=== PATIENT | female | born 1990 | race Caucasian/White ===

== ENCOUNTER 2016-12-15 19:40 | Emergency (ER) | payer BC ==
[2016-12-15 19:49] VITALS: BP 128/82; TEMP 98.4; BMI 32.1
[2016-12-15 20:29] LABS: URINE APPEARANCE CLEAR; URINE BILIRUBIN NEGATIVE (NEGATIVE); URINE BLOOD 3+ (NEGATIVE); URINE COLOR LTYELLOW; URINE GLUCOSE (UA) NEGATIVE (NEGATIVE); URINE KETONE NEGATIVE (NEGATIVE); URINE NITRITE NEGATIVE (NEGATIVE); URINE PROTEIN NEGATIVE (NEGATIVE); URINE UROBILINOGEN NEGATIVE mg/dL (0.2-1.0)
[2016-12-15 20:34] LABS: BASOPHIL 0.6 % (0-2.0); EOSINOPHIL 0.7 % (0-4.5); MCH 29.9 pg (25.7-33.7); MCHC 34.7 g/dl (32.0-36.0); MEAN CELL VOLUME 86.1 fl (80-96); MEAN PLT VOLUME 8.5 fl (7.5-11.1); NEUTROPHILS 73.4 % (42.8-82.8); PLATELET COUNT 295 K/MM3 (134-434); RDW 12.6 % (11.6-15.6); WHITE BLOOD COUNT 12.9 K/mm3 (4.0-10.0)
[2016-12-15 20:56] LABS: URINE BACTERIA RARE /hpf (NONE SEEN); URINE MUCUS RARE; URINE RBC 315 /hpf (0-3); URINE WBC 8 /hpf (3-5)
[2016-12-15] MEDS ORDERED: KETOROLAC TROMETHAMINE 30 MG/1 ML VIAL IVPUSH ONE (21:04)
--- NOTE | 2016-12-15 21:06 | PDOC ---
History of Present Illness <Radha Kincaid - Last Filed: 12/15/16 21:05> - General History Source: Patient Exam Limitations: No Limitations - History of Present Illness Timing/Duration: 4-6 hours Severity: severe Associated Symptoms: reports: nausea/vomiting <Maryjo Casillas - Last Filed: 12/15/16 21:22> - General Chief Complaint: Pain, Acute Stated Complaint: RT FLANK PAIN Time Seen by Provider: 12/15/16 20:09 Past History - Past Medical History COPD: No - Suicide/Smoking/Psychosocial Hx Smoking History: Never smoked Hx Alcohol Use: No Drug/Substance Use Hx: No <Radha Kincaid - Last Filed: 12/15/16 21:05> <Maryjo Casillas - Last Filed: 12/15/16 21:22> - Past Medical History Allergies/Adverse Reactions: Allergies Allergy/AdvReac Type Severity Reaction Status Date / Time No Known Allergies Allergy Verified 12/15/16 19:48 Home Medications: Ambulatory Orders NK [No Known Home Medication] 12/15/16 Review of Systems - Review of Systems Able to Perform ROS?: Yes Is the patient limited Irish proficient: No Constitutional: No: Symptoms Reported, See HPI, Chills, Diaphoresis, Fever, Loss of Appetite, Malaise, Night Sweats, Weakness, Weight Stable, Unintentional Wgt. Loss, Unexplained wgt Loss, Other HEENTM: No: Symptoms Reported, See HPI, Eye Pain, Blurred Vision, Tearing, Recent change in vision, Double Vision, Cataracts, Ear Pain, Ocular Prothesis, Ear Discharge, Nose Pain, Nose Congestion, Tinnitus, Nose Bleeding, Hearing Loss , Throat Pain, Throat Swelling, Mouth Pain, Dental Problems, Difficulty Swallowing, Mouth Swelling, Other Respiratory: No: Symptoms reported, See HPI, Cough, Orthopnea, Shortness of Breath, SOB with Exertion, SOB at Rest, Stridor, Wheezing, Productive cough, Hemoptysis, Other Cardiac (ROS): No: Symptoms Reported, See HPI, Chest Pain, Edema, Irregular Heart Rate, Lightheadedness, Palpitations, Syncope, Chest Tightness, Other ABD/GI: Yes: Nausea : Yes: Flank Pain Musculoskeletal: Yes: Back Pain Neurological: No: Symptoms reported, See HPI, Headache, Numbness, Paresthesia, Pre-Existing Deficit, Seizure, Tingling, Tremors, Weakness, Unsteady Gait, Ataxia, Dizziness, Other Psychiatric: No: Anxiety, Depression, Frequent Crying, Stressors, Sleep Pattern Change, Emotional Problems, Mood Swings, Change in Appetite, Other Endocrine: No: Increased Thirst, Increased Urine Hematologic/Lymphatic: No: Symptoms Reported, See HPI, Anemia, Blood Clots, Easy Bleeding, Easy Bruising, Bleeding Diathesis, Lymph Node Abnormalities, Swollen Glands, Other <Maryjo Casillas - Last Filed: 12/15/16 21:22> *Physical Exam - Vital Signs Last Vital Signs Temp Pulse Resp BP Pulse Ox 98.4 F 83 18 128/82 98 12/15/16 19:43 12/15/16 19:43 12/15/16 19:43 12/15/16 19:43 12/15/16 19:43 <Radha Kincaid - Last Filed: 12/15/16 21:05> - Vital Signs Last Vital Signs Temp Pulse Resp BP Pulse Ox 98.4 F 83 18 128/82 98 12/15/16 19:43 12/15/16 19:43 12/15/16 19:43 12/15/16 19:43 12/15/16 19:43 - Physical Exam General Appearance: Yes: Nourished, Mild Distress HEENT: positive: Normal Voice Neck: positive: Supple Respiratory/Chest: positive: Lungs Clear Cardiovascular: positive: Regular Rhythm, Regular Rate Gastrointestinal/Abdominal: positive: Tender, Soft Rectal Exam: positive: deferred Musculoskeletal: positive: CVA Tenderness (R) Extremity: negative: Normal Capillary Refill, Normal Inspection, Normal Range of Motion, Tender, Pelvis Stable, Coldness, Cyanosis, Delayed Capillary Refill, Pedal Edema, Swelling, Calf Tenderness, Erythema, Inflammation, Other Integumentary: positive: Normal Color, Warm Neurologic: positive: Fully Oriented, Normal Response, Motor Strength 5/5 <Maryjo Casillas - Last Filed: 12/15/16 21:22> ED Treatment Course - LABORATORY CBC & Chemistry Diagram: 12/15/16 20:13 12/15/16 20:13 - ADDITIONAL ORDERS Additional order review: Laboratory Results 12/15/16 12/15/16 20:11 20:11 Urine Color Ltyellow Urine Appearance Clear Urine pH 7.0 Ur Specific [place] 1.011 Urine Protein Negative Urine Glucose (UA) Negative Urine Ketones Negative Urine Blood 3+ H Urine Nitrite Negative Urine Bilirubin Negative Urine Urobilinogen Negative Urine HCG, Qual Negative 12/15/16 20:13 RBC 4.67 MCV 86.1 MCHC 34.7 RDW 12.6 MPV 8.5 Neutrophils % 73.4 Lymphocytes % 20.1 Monocytes % 5.2 Eosinophils % 0.7 Basophils % 0.6 - RADIOLOGY Radiology Studies Ordered: Category Date Time Status TRANSVAGINAL ULTRASOUND US [US] Stat Ultrasound 12/15/16 19:47 Completed <Radha Kincaid - Last Filed: 12/15/16 21:05> - LABORATORY CBC & Chemistry Diagram: 12/15/16 20:13 12/15/16 20:13 - ADDITIONAL ORDERS Additional order review: Laboratory Results 12/15/16 12/15/16 20:11 20:11 Urine Color Ltyellow Urine Appearance Clear Urine pH 7.0 Ur Specific [place] 1.011 Urine Protein Negative Urine Glucose (UA) Negative Urine Ketones Negative Urine Blood 3+ H Urine Nitrite Negative Urine Bilirubin Negative Urine Urobilinogen Negative Urine RBC 315 Urine WBC 8 Ur Epithelial Cells Rare Urine Bacteria Rare Urine Mucus Rare Urine HCG, Qual Negative 12/15/16 20:13 RBC 4.67 MCV 86.1 MCHC 34.7 RDW 12.6 MPV 8.5 Neutrophils % 73.4 Lymphocytes % 20.1 Monocytes % 5.2 Eosinophils % 0.7 Basophils % 0.6 - Medications Given in the ED: ED Medications Discontinued Medications Generic Name Dose Route Start Last Admin Trade Name Freq PRN Reason Stop Dose Admin Ketorolac Tromethamine 30 mg 12/15/16 21:04 12/15/16 21:10 Toradol Injection - IVPUSH 12/15/16 21:05 30 mg ONCE ONE Administration <Maryjo Casillas - Last Filed: 12/15/16 21:22> *DC/Admit/Observation/Transfer - Discharge Dispostion Admit: No <Radha Kincaid - Last Filed: 12/15/16 21:05> <Maryjo Casillas - Last Filed: 12/15/16 21:22> Diagnosis at time of Disposition: Nephrolithiasis - Discharge Dispostion Disposition: HOME Condition at time of disposition: Good - Referrals Referrals: STAFF,NOT ON [Primary Care Provider] - - Patient Instructions Printed Discharge Instructions: Kidney Stones -- Adult Additional Instructions: A prescription for pain medication has been called to your pharmacy. Please return to the Emergency Department should you have any worsening or concerning symptoms.
[2016-12-15] MEDS ORDERED: KETOROLAC TROMETHAMINE 30 MG/1 ML VIAL ONE (21:07)
[2016-12-15 21:29] VITALS: PULSE 82
[2016-12-15 22:00] LABS: ALBUMIN 4.3 g/dl (3.4-5.0); ALK PHOS 65 U/L (45-117); ANION GAP 6 (8-16); BILIRUBIN,TOTAL 0.5 mg/dL (0.2-1.0); CALCIUM 8.6 mg/dL (8.5-10.1); CO2 28 mmol/L (21-32); CREATININE 0.8 mg/dL (0.55-1.02); GLUCOSE,RANDOM 88 mg/dL (74-106); SGOT/AST 13 U/L (15-37); SGPT/ALT 19 U/L (12-78); TOT PROT 7.5 g/dl (6.4-8.2)
[2016-12-15 23:33] LABS: URINE LEUK ESTERASE Negative (NEGATIVE)
== END 2016-12-15 21:28 | disposition home or self-care (01) ==
LOC: JER 19:40
PROC: 3E0333Z Introduction of Anti-inflammatory into Peripheral Vein, Percutaneous Approach (ICD-10-PCS; principal; 2016-12-15)
DX: N20.0 Calculus of kidney (principal)
CPT/HCPCS: 36415; 76830-TC; 80053; 81003; 81015; 84703; 85025; 99283-25